=== PATIENT | male | born 1995 | race Hispanic/Latino ===

== ENCOUNTER 2020-10-25 12:59 | Emergency (ER) | payer BC, MEDICAID ==
[~2020-10-25] VITALS: Ht 170.2 cm; Wt 88.5 kg
[2020-10-25 13:30] LABS: APPEARANCE,URINE Turbid (CLEAR); BILIRUBIN,URINE Negative (NEGATIVE); COLOR,URINE Yellow (YELLOW); GLUCOSE, URINE (UA) Negative (NEGATIVE); KETONES,URINE Negative (NEGATIVE); LEUKOCYTE ESTERASE ,URINE Negative (NEGATIVE); NITRATE,URINE Negative (NEGATIVE); OCCULT BLOOD,URINE Large (NEGATIVE); PH,URINE 5.5 (5.0-8.0); PROTEIN,URINE Trace mg/dL (NEGATIVE); UROBILINOGEN,URINE 0.2 mg/dL (0.2-1.0)
[2020-10-25 13:35] LABS: CREATININE 1.1 mg/dL (0.5-1.5); POTASSIUM 3.9 mmol/L (3.5-5.1)
[2020-10-25 13:37] LABS: BASOPHILS % (AUTO) 0.3 % (0.0-5.0); EOSINOPHILS % (AUTO) 0.6 % (0.0-8.0); HEMATOCRIT 41.8 % (42-54); LYMPHOCYTES % (AUTO) 13.3 % (21.0-51.0); MEAN CORPUSCULAR HEMOGLOBIN 29.5 pg (27.0-33.0); MEAN CORPUSCULAR HGB CONC 33.3 g/dL (32.0-36.0); MEAN CORPUSCULAR VOLUME 88.7 fL (79-99); MONOCYTES % (AUTO) 5.9 % (3.0-13.0); NEUTROPHILS % (AUTO) 78.7 % (40.0-77.0); PLATELET COUNT (AUTO) 227 K/uL (130-400); RED BLOOD CELL COUNT(AUTO) 4.71 MIL/uL (4.50-6.20); RED CELL DISTRIBUTION WIDTH 12.5 % (11.0-15.5); WHITE BLOOD COUNT (AUTO) 9.7 K/uL (4.8-10.8)
[2020-10-25 13:39] LABS: ALBUMIN 4.5 g/dL (3.5-5.0); BILIRUBIN,TOTAL 0.4 mg/dL (0.2-1.0); TOTAL PROTEIN, SERUM 8.7 g/dL (6.0-8.3)
[2020-10-25 13:43] LABS: BACTERIA,URINE None Seen /HPF (None Seen); SQUAMOUS EPITHELIAL CELL,UR 0-2 /HPF (0-2); URIC ACID CRYSTALS,URINE Many /LPF (None Seen); WBC,URINE None Seen /HPF (0-1); YEAST,URINE BUDDING Few /HPF (None Seen)
[2020-10-25] MEDS ORDERED: 0.9%NACL 1000ML 1,000 ML IV ONE (14:00)
[2020-10-25] MEDS ORDERED: KETOROLAC 30MG VIAL (30MG/ML) IV ONE (14:00)
[2020-10-25] MEDS ORDERED: ONDANSETRON 4MG INJ IVP ONE (14:00)
[2020-10-25] MEDS ORDERED: CEPH500B PO (14:49)
[2020-10-25] MEDS ORDERED: DICY20TA2 PO (14:49)
[2020-10-25 15:25] VITALS: BP 125/74
== END 2020-10-25 15:48 | disposition home or self-care (01) ==
LOC: EDH 12:59
DX: R10.31 Right lower quadrant pain (principal); R31.9 Hematuria, unspecified; R11.0 Nausea; H91.3 Deaf nonspeaking, not elsewhere classified; Z79.899 Other long term (current) drug therapy
CPT/HCPCS: 36415; 74176; 80053; 81001; 82150; 83690; 85025; 86140; 96361; 96374; 96375; 99284; J1885; J2405; J7030